=== PATIENT | male | born 1960 | race Two or more races ===

== ENCOUNTER 2018-02-11 06:00 | Day surgery (SDC) | payer OTHER ==
[~2018-02-11 06:00] MED LIST: ALAVERT D-12 A1 EACH PO; VERAPAMIL HCL40 MG PO
== END 2018-02-11 16:00 | disposition home or self-care (01) ==
LOC: CIR.AMB 06:00
DX: D23.22 Other benign neoplasm of skin of left ear and external auricular canal (principal)

== ENCOUNTER 2019-07-25 10:38 | Emergency (ER) | payer OTHER ==
[~2019-07-25] VITALS: Ht 175.3 cm; Wt 85.3 kg
== END 2019-07-25 14:45 | disposition home or self-care (01) ==
LOC: ER 10:38
DX: S42.134A Nondisplaced fracture of coracoid process, right shoulder, initial encounter for closed fracture (principal); W18.39XA Other fall on same level, initial encounter; Y93.89 Activity, other specified; Y92.098 Other place in other non-institutional residence as the place of occurrence of the external cause; Y99.8 Other external cause status

== ENCOUNTER 2021-01-10 11:53 | Emergency (ER) | payer OTHER ==
[~2021-01-10] VITALS: Ht 172.7 cm; Wt 81.6 kg
[2021-01-10] MEDS ORDERED: ORPHENADRINE C100 MG PO (16:15)
[2021-01-10] MEDS ORDERED: KETO10TA2 PO (16:15)
== END 2021-01-10 16:19 | disposition home or self-care (01) ==
LOC: ER 11:53
DX: M62.838 Other muscle spasm (principal)

== ENCOUNTER 2021-12-20 05:40 | Day surgery (SDC) | payer OTHER ==
[~2021-12-20 05:40] MED LIST changes: +KETO10TA2 PO; +ORPHENADRINE C100 MG PO
[2021-12-20] MEDS ORDERED: MIRALAX17 GM PO (07:23)
[2021-12-20] MEDS ORDERED: KETO10TA2 PO (07:23)
[2021-12-20] MEDS ORDERED: NEURONTIN300 MG PO (07:23)
[2021-12-20] MEDS ORDERED: TYLENOL ARTHRI650 MG PO (07:23)
[2021-12-20] MEDS ORDERED: PEPCID AC20 MG PO (07:23)
[2021-12-20] MEDS ORDERED: ULTRAM50 MG PO (07:23)
== END 2021-12-20 16:00 | disposition home or self-care (01) ==
LOC: CIR.AMB 05:40
PROVIDERS: ATTEND Surgery
DX: K40.90 Unilateral inguinal hernia, without obstruction or gangrene, not specified as recurrent (principal); Z20.822 Contact with and (suspected) exposure to COVID-19; K42.9 Umbilical hernia without obstruction or gangrene; I10 Essential (primary) hypertension; Z87.891 Personal history of nicotine dependence; G47.33 Obstructive sleep apnea (adult) (pediatric); Z99.89 Dependence on other enabling machines and devices

== ENCOUNTER 2023-04-05 09:00 | Emergency (ER) | payer OTHER ==
[~2023-04-05] VITALS: Ht 172.7 cm; Wt 88.0 kg
[~2023-04-05 09:00] MED LIST changes: +MIRALAX17 GM PO; +NEURONTIN300 MG PO; +PEPCID AC20 MG PO; +TYLENOL ARTHRI650 MG PO; +ULTRAM50 MG PO
== END 2023-04-05 12:39 | disposition home or self-care (01) ==
LOC: ER 09:00
DX: M25.571 Pain in right ankle and joints of right foot (principal); M25.471 Effusion, right ankle

== ENCOUNTER 2023-10-05 22:01 | Emergency (ER) | payer OTHER ==
[~2023-10-05] VITALS: Ht 175.3 cm; Wt 84.4 kg
[2023-10-06] MEDS ORDERED: KETO10TA2 PO (01:07)
== END 2023-10-06 01:16 ==
LOC: ER 22:02
DX: S46.812A Strain of other muscles, fascia and tendons at shoulder and upper arm level, left arm, initial encounter (principal); X58.XXXA Exposure to other specified factors, initial encounter; Y93.89 Activity, other specified; Y92.89 Other specified places as the place of occurrence of the external cause; Y99.8 Other external cause status; I10 Essential (primary) hypertension